=== PATIENT | male | born 2000 | race Two or more races ===

== ENCOUNTER 2020-07-18 09:36 | Day surgery (SDC) | payer OTHER ==
[~2020-07-18 09:36] MED LIST: CEFAZOLIN 2 GM/D5W RTU 2 GM/50 ML RTUPB IV PRN
[2020-07-18] MEDS ORDERED: SUCCINYLCHOLINE CHLORIDE INJ 200 MG/10 ML VIAL ONE (10:59)
[2020-07-18] MEDS ORDERED: CEFAZOLIN 2 GM/D5W RTU 2 GM/50 ML RTUPB IV ONE (11:40)
[2020-07-18] MEDS ORDERED: MIDAZOLAM 2 MG/2 ML INJ ONE ×2 (12:42→13:04)
[2020-07-18] MEDS ORDERED: ROPIVACAINE HCL 0.5% INJ/PF (5 MG/1 ML) 30 ML SDV ONE (12:43)
[2020-07-18] MEDS ORDERED: FENTANYL CITRATE INJ/PF 250 MCG/5 ML AMPULE ONE (13:04)
[2020-07-18] MEDS ORDERED: ONDANSETRON HCL INJ/PF 4 MG/2 ML SDV ONE (13:04)
[2020-07-18] MEDS ORDERED: PROPOFOL INJ 200 MG/20 ML VIAL IV ONE (13:05)
[2020-07-18] MEDS ORDERED: PROMETHAZINE HCL INJ 25 MG/1 ML VIAL IV PRN ×2 (14:00)
[2020-07-18] MEDS ORDERED: ONDANSETRON HCL INJ/PF 4 MG/2 ML SDV IV PRN (14:00)
[2020-07-18] MEDS ORDERED: MORPHINE SULFATE 10 MG/ML INJ IV PRN ×2 (14:00→15:02)
[2020-07-18] MEDS ORDERED: DIPHENHYDRAMINE HCL 50 MG/ML VIAL IV PRN (14:00)
[2020-07-18] MEDS ORDERED: FENTANYL CITRATE INJ/PF 100 MCG/2 ML AMPUL IV PRN ×3 (14:00)
[2020-07-18] MEDS ORDERED: MEPERIDINE HCL/PF INJ 25 MG/1 ML DISP.SYRIN IV PRN (14:00)
[2020-07-18] MEDS ORDERED: OXYCODONE-ACETAMINOPHEN 5-325 MG TABLET PO PRN ×3 (14:00→15:02)
--- NOTE | 2020-07-18 15:02 | Discharge Summary ---
Discharge Summary (SDC) - Discharge Final Diagnosis: Right radial/ulnar shaft fracture Date of Surgery: 07/18/20 Discharge Date: 07/18/20 Condition: Good Treatment or Instructions: Schedule Follow Up w/ Dr. Mike Tony @ [facility] to be seen in 10-14 days or as scheduled [place]: [place]: [place]: Ice and elevate Keep splint clean/dry/intact, do not remove. If your fingers become numb please unwrap the Darrell wrap but leave the splint in place, if the sensation does not return within 30 minutes please return to the emergency department. May begin finger range of motion attempting to make full fist. Please use ibuprofen (Motrin or Advil) 600-800 mg every 8 hours as needed for pain or fever DO NOT TAKE w/ TORADOL may use once TORADOL complete. You may also use acetaminophen (Tylenol) 1000 mg every 4-6 hours as needed for pain or fever. Please be aware that many medications contain acetaminophen, do not exceed a total of 1000 mg of acetaminophen every 6 hours. If ibuprofen and acetaminophen are not sufficient for your pain you may take the Percocet/[place]. Please be aware that the Percocet/[place] does contain Tylenol. Stool softener of choice when on pain medication. USE OF EZUW-TIY-UYUWASF IBUPROFEN: Ibuprofen (Advil, Nuprin, Medipren, Motrin IB) is a medication for fever and pain control. In addition, it has anti- inflammatory effects which may be beneficial, especially in the treatment of injuries. It's best to take ibuprofen with food. Persons with ulcer disease or allergy to aspirin should notify their physician of this before taking ibuprofen. Ibuprofen can be given every four to six hours, for a total of four doses daily. Age Pain or fever dose Antiinflammatory dose 6-8 yr 200 mg (1 tab) 200 mg (1 tab) 9-11 yr 200 mg (1 tab) 200-400 mg (1-2 tab) 11-14 yr 200-400 mg (1-2 tab) 400 mg (2 tab) 15-adult 400 mg (2 tab) 600 mg (3 tab) ORAL NARCOTIC MEDICATION: You have been given a prescription for pain control. This medication is a narcotic. It's best taken with food, as nausea can result if taken on an empty stomach. Don't operate machinery or drive within six hours of taking this medication. Do not combine this medicine with alcohol, or with any medication which can cause sedation (such as cold tablets or sleeping pills) unless you get permission from the physician. Narcotics tend to cause constipation. If possible, drink plenty of fluids and eat a diet high in fiber and fruits. Please be aware that prescription narcotics also have the potential for abuse. People become addicted to these medications because of the general sense of wellbeing that they induce. This feeling along with a significant reduction in tension, anxiety, and aggression provides a stimulating seductive quality to these drugs. Once your pain is under control, we encourage you to discard your unused narcotics. Prescriptions: Oxycodone HCl/Acetaminophen [Percocet 7.5-325 mg Tablet] 1 tab PO Q6 #25 tab Discharge Diet: As Tolerated Respiratory Treatments at Home: Deep Breathing/Coughing, Incentive Spirometer Discharge Activity: No Lifting Over 10 Pounds, No Lifting/Push/Pulling Report the Following to Your Physician Immediately: Fever over 101 Degrees, Unusual Bleeding, Redness, Swelling, Warmth, Increased Soreness
--- NOTE | 2020-07-18 15:52 | RADIOLOGY REPORT (SQ) ---
EXAM DESCRIPTION: NO CHG FLUORO; FOREARM RIGHT IMAGES COMPLETED DATE/TIME: 07/18/2020 3:22 pm REASON FOR STUDY: ORIF RIGHT FOREARM ASSISTED WITH FLUORO IN OR COMPARISON: None. FLUOROSCOPY TIME: 10 seconds 4 Images saved to PACS LIMITATIONS: None. PROCEDURE: ORIF right forearm FINDINGS: Images from fluoro document placement of plates on the radius and ulna. IMPRESSION: ORIF right forearm. Refer to operative note for further information. COMMENT: PQRS 6045F: Fluoroscopy time of the procedure is documented in the report. TECHNICAL DOCUMENTATION: JOB ID: [id number] 2010 [employer]- All Rights Reserved Reading location - IP/workstation name: [email or web address]
--- NOTE | 2020-07-18 15:52 | RADIOLOGY REPORT (SQ) ---
EXAM DESCRIPTION: NO CHG FLUORO; FOREARM RIGHT IMAGES COMPLETED DATE/TIME: 07/18/2020 3:22 pm REASON FOR STUDY: ORIF RIGHT FOREARM ASSISTED WITH FLUORO IN OR COMPARISON: None. FLUOROSCOPY TIME: 10 seconds 4 Images saved to PACS LIMITATIONS: None. PROCEDURE: ORIF right forearm FINDINGS: Images from fluoro document placement of plates on the radius and ulna. IMPRESSION: ORIF right forearm. Refer to operative note for further information. COMMENT: PQRS 6045F: Fluoroscopy time of the procedure is documented in the report. TECHNICAL DOCUMENTATION: JOB ID: [id number] 2010 [employer]- All Rights Reserved Reading location - IP/workstation name: [email or web address]
--- NOTE | 2020-07-18 16:23 | Operative Report ---
Operative Report DATE OF SURGERY: 07/18/20 PREOPERATIVE DIAGNOSIS: Right both bone forearm fracture POSTOPERATIVE DIAGNOSIS: right both bone forearm fracture OPERATION: Right both bone forearm fracture open reduction internal fixation, 2 incision. SURGEON: AMILCAR POLK JR 1ST CEMENTING BULK MATERIAL OPERATOR: KWESI SOMMERS ANESTHESIA: GA - Regional block COMPLICATIONS: None ESTIMATED BLOOD LOSS: 20 cc PROCEDURE: The patient was brought in the operating suite and laid supine on the operating table. Preoperatively the patient received a regional block. Patient was placed under general anesthesia. Preoperatively the patient was provided 2 g of Ancef. The right upper extremities then prepped and draped in sterile sterile fashion. Appropriate timeout was performed followed by marking out the incision both volarly and dorsally with the assistance of fluoroscopy to localize the fracture site. Esmarch was used to exsanguinate the limb followed by tourniquet inflation to 250 mmHg. We began our approach with a direct incision over the ulna. This was Carried down through the skin and then carefully dissected through the subdermal layer. Blunt dissection was used to reflect the musculature off of the bone. Upon identifying the fracture, careful dissection was performed with consideration to preserve periosteum. 2 lobster claws were placed over the bones and the fracture was held in reduction in appropriate rotation. We had a good mcdermott on this side were able to keep the fracture in and achieve anatomic reduction. After this a lag screw was drilled given the obliquity of the fracture allowed. A lag by technique was used to achieve an stable screw. This was then followed with a neutralization plate placed over the center of the fracture. Nonlocking screws were used in order to approximate the plate to bone followed by a single locking screw and the distal segment. We confirmed depth and appropriate positioning on fluoroscopy as well as alignment of the bone. After this we then turned our attention to the radius. A volar approach of Jair was performed carefully identifying and protecting superficial nerves. We took care to protect the PIN which never directly came into view. The pronator teres was reflected off of the distal aspect of the radius and was found to be under tension and retracted considerably upon reflection. Unfortunately in order to place the plate in the appropriate position the pronator needed to be entirely released. The radial fracture was relatively transverse and had a mcdermott that allowed for anatomic reduction. After achieving this the plate was approximated to bone and to screws were drilled for the oblong screws in order to achieve compression through the plate. After utilizing the compression screws and bringing both to bone, the remaining screws were then drilled measured and placed appropriately. Fluoroscopy was once again used to ensure appropriate position of the plate and screws and that there was no proud screws potentially leading to soft tissue impingement. Attempt was made to reduce the pronator teres which was found to be too tight to obtain a adequate repair. We proceeded to irrigate both wounds copiously with dilute Betadine solution. Following this the subcutaneous layer on the volar aspect was addressed initially with a running 2-0 Monocryl. We placed a running nylon suture through the skin. The same procedure was used to close the dorsal aspect. We then proceeded to place a sterile dressing followed by a well-padded posterior splint. Patient was then awakened from anesthesia and transferred to the PACU in stable condition.
[2020-07-18 17:29] VITALS: BP 139/87
== END 2020-07-18 17:40 | disposition home or self-care (01) ==
LOC: OROUT 09:36
PROVIDERS: ATTEND Orthopaedic Surgery
DX: S52.321A Displaced transverse fracture of shaft of right radius, initial encounter for closed fracture (principal); S52.221A Displaced transverse fracture of shaft of right ulna, initial encounter for closed fracture; W19.XXXA Unspecified fall, initial encounter; Z03.818 Encounter for observation for suspected exposure to other biological agents ruled out
CPT/HCPCS: 25575; 87635; 73090; 01830; C1713 ×7; J2795; J2250; J3010; J0330; J2405; J2704; J0690; C9803